=== PATIENT | female | born 2000 | race Caucasian/White ===

== ENCOUNTER 2023-10-12 16:33 | Outpatient (CLI) | payer OTHER, SELFPAY | END 2023-10-12 16:34 | disposition home or self-care (01) | PROVIDERS: Visit Provider Registered Nurse | DX: O21.9 Vomiting of pregnancy, unspecified (principal); Z3A.01 Less than 8 weeks gestation of pregnancy | CPT/HCPCS: 82565; 82570; 84156; 84450; 84460; 84520; 84550; 86592; 86703; 86704; 86706; 86762; 86787; 86803; 86850; 86900; 86901; 87086; 87340 ==

== ENCOUNTER 2023-10-25 16:24 | Outpatient (CLI) | payer OTHER, SELFPAY | END 2023-10-25 16:25 | disposition home or self-care (01) | LOC: NFLDREF 11-12 11:53 | PROVIDERS: PCP Registered Nurse; Visit Provider Registered Nurse | DX: Z34.01 Encounter for supervision of normal first pregnancy, first trimester (principal) | CPT/HCPCS: 82570; 84156 ==

== ENCOUNTER 2023-10-29 12:51 | Outpatient (CLI) | payer OTHER, SELFPAY ==
--- NOTE | 2023-10-29 13:00 | US_ITS ---
Patient: LEYLA OLIVAREZ Facility:?[facility] Patient ID:?[id number] Site Patient ID:?[id number]. Site :?[id number] Study:?US-OB Pelvis TV OB <14wks-10/29/2023 1:37:46 PM Ordering Physician:?Hoa Duarte Final Report: INDICATION: First trimester scan, establish dates. COMPARISON: None. TECHNIQUE: Real-time mulligan-scale imaging of the pelvis was performed. FINDINGS: Sonographic imaging demonstrates a single living intrauterine gestation. The embryo demonstrates a regular cardiac rate measuring 169 beats per minute. The embryo`s crown-rump length measurement of 2.3 cm corresponds to a gestational age of 9 weeks 0 days with a sonographic due date of 06/02/2024. There is a normal-appearing yolk sac. There are no gross abnormalities noted within the embryo at this early state of development. The gestational sac has a normal appearance. There is no evidence of a perigestational hemorrhage. The amount of fluid within the sac appears appropriate for gestational age. The cervix is closed. The myometrium appears normal. The ovaries are of normal size. Corpus luteal cyst right ovary. There are no suspicious fluid collections noted in the cul-de-sac. IMPRESSION: Normal first trimester OB ultrasound exam. Gestational age calculated at 9 weeks 0 days with a sonographic due date of 06/02/2024. Dictated by Lavon Stewart MD @ 10/29/2023 3:59:13 PM Signed by:?Lavon Stewart MD @10/29/2023 3:59:13 PM (Electronic Signature)
== END 2023-10-29 12:52 | disposition home or self-care (01) ==
LOC: US 12:51
PROVIDERS: Visit Provider Registered Nurse
DX: Z34.91 Encounter for supervision of normal pregnancy, unspecified, first trimester (principal); Z3A.09 9 weeks gestation of pregnancy
CPT/HCPCS: 76817

== ENCOUNTER 2023-10-29 14:35 | Outpatient (CLI) | payer OTHER, SELFPAY | END 2023-10-29 14:36 | disposition home or self-care (01) | LOC: NFLDREF 14:36 | PROVIDERS: Visit Provider Registered Nurse | DX: Z34.91 Encounter for supervision of normal pregnancy, unspecified, first trimester (principal) | CPT/HCPCS: 87086 ==